=== PATIENT | female | born 1970 | race Caucasian/White ===

== ENCOUNTER → 2020-03-11 | Outpatient (CLI) | payer OTHER | END | disposition home or self-care (01) | LOC: COVID19 15:34 → EDSTATUS 03-12 15:34 | PROVIDERS: ATTEND Family Medicine | DX: Z20.822 Contact with and (suspected) exposure to COVID-19 (principal) ==

== ENCOUNTER → 2020-11-11 | Outpatient (CLI) | payer BC | END | disposition home or self-care (01) | LOC: MAMMO 11:06 | PROVIDERS: ATTEND Family Medicine | DX: Z12.31 Encounter for screening mammogram for malignant neoplasm of breast (principal) ==

== ENCOUNTER → 2020-11-25 | Day surgery (SDC) | payer BC ==
[~2020-11-25] VITALS: Ht 165.1 cm; Wt 70.8 kg
[~2020-11-25] MED LIST: CARAFATE1 G1 PO; NICODERM CQ1 EACH T; PROTONIX20 MG PO; SYMB160 INH
[2020-11-25 08:12] VITALS: BP 128/50
[2020-11-25 09:27] VITALS: BP 120/68
[2020-11-25 09:42] VITALS: BP 116/69
[2020-11-25 09:57] VITALS: BP 108/62
== END | disposition home or self-care (01) ==
LOC: SDC 11-22 10:15
PROVIDERS: ATTEND Surgery
DX: Z12.11 Encounter for screening for malignant neoplasm of colon (principal); D12.5 Benign neoplasm of sigmoid colon; K29.50 Unspecified chronic gastritis without bleeding; K57.30 Diverticulosis of large intestine without perforation or abscess without bleeding; J44.9 Chronic obstructive pulmonary disease, unspecified; K21.00 Gastro-esophageal reflux disease with esophagitis, without bleeding; Z90.710 Acquired absence of both cervix and uterus; Z79.899 Other long term (current) drug therapy; Z20.822 Contact with and (suspected) exposure to COVID-19

== ENCOUNTER → 2020-12-02 | Outpatient (CLI) | payer BC | END | disposition home or self-care (01) | LOC: US 11-24 00:58 | PROVIDERS: ATTEND Family Medicine | DX: R92.8 Other abnormal and inconclusive findings on diagnostic imaging of breast (principal) ==

== ENCOUNTER 2022-03-05 11:45 | Emergency (ER) | payer BC ==
[~2022-03-05] VITALS: Ht 165.1 cm; Wt 72.6 kg
[2022-03-05] MEDS ORDERED: HYDROCODONE-AC1 EAC1 PO (13:33)
[2022-03-05] MEDS ORDERED: SEPTDS PO (13:33)
== END 2022-03-05 14:25 | disposition home or self-care (01) ==
LOC: ED 11:45
DX: H10.31 Unspecified acute conjunctivitis, right eye (principal); L03.213 Periorbital cellulitis; K21.9 Gastro-esophageal reflux disease without esophagitis; J44.9 Chronic obstructive pulmonary disease, unspecified; Z90.710 Acquired absence of both cervix and uterus

== ENCOUNTER → 2022-03-28 | Outpatient (CLI) | payer BC ==
[~2022-03-28] MED LIST changes: +HYDROCODONE-AC1 EAC1 PO; +SEPTDS PO
[2022-03-29 13:06] LABS: ANGIOTENSIN-CONVERTING ENZYME 40 U/L (14-82)
== END | disposition home or self-care (01) ==
LOC: LAB 11:36
PROVIDERS: ATTEND Student in an Organized Health Care Education/Training Program
DX: H21.541 Posterior synechiae (iris), right eye (principal)